=== PATIENT | male | born 1990 | race African-American/Black ===

== ENCOUNTER 2024-05-30 14:00 | Emergency (ER) | payer OTHER ==
[2024-05-30 14:45] VITALS: BP 149/104; PULSE 77; RESP 16; TEMP 97.5; BMI 29.9
[2024-05-30 14:57] LABS: HEMATOCRIT 41.1 % (35.4-49); HEMOGLOBIN 13.5 G/dL (11.7-16.9); MCH 27.5 pg (25.7-33.7); MCHC 32.9 g/dl (32.0-35.9); MEAN CELL VOLUME 83.8 fl (80-96); MEAN PLT VOLUME 7.8 fl (7.5-11.1); RBC 4.91 10^6/uL (4.00-5.60); WHITE BLOOD COUNT 6.3 10^3/uL (4.0-10.8)
[2024-05-30 15:05] LABS: ALBUMIN 4.4 g/dl (3.4-5.0); BILIRUBIN,TOTAL 0.5 mg/dl (0.2-1); CALCIUM 9.4 mg/dl (8.5-10.1); CREATININE 1.5 mg/dl (0.6-1.3); POTASSIUM 3.7 mmol/L (3.5-5.1); TOT PROT 6.8 g/dl (6.4-8.2)
[2024-05-30 15:08] LABS: PLATELET ESTIMATE ADEQUATE
== END 2024-05-30 15:51 | disposition home or self-care (01) ==
LOC: FER 14:00
DX: R07.1 Chest pain on breathing (principal)
CPT/HCPCS: 36415; 71045-TC-FY; 80053; 84484; 85027; 93005; 99285-25